=== PATIENT | female | born 1990 | race Caucasian/White ===

== ENCOUNTER 2022-03-26 14:37 | Emergency (ER) | payer OTHER ==
[~2022-03-26 14:37] MED LIST: CEFUROXIME500 MG PO; FLOMAX0.4 MG PO; NORVASC5 MG PO; TORADOL 10 MG T10 MG PO
[2022-03-26 15:30] LABS: RED BLOOD COUNT 4.86 M/UL (4.00-5.10); WHITE BLOOD COUNT 10.6 K/UL (4.5-11.0)
[2022-03-26 15:51] LABS: BUN/CREATININE RATIO 7 (0-10)
[2022-03-26] MEDS ORDERED: FLOMAX 0.4 MG0.4 MG PO (19:03)
[2022-03-26] MEDS ORDERED: OMNICEF 300 MG300 MG PO (19:03)
== END 2022-03-26 19:52 | disposition home or self-care (01) ==
LOC: ER1 14:37
PROVIDERS: Family Medicine
DX: N13.2 Hydronephrosis with renal and ureteral calculous obstruction (principal); N30.90 Cystitis, unspecified without hematuria; F17.200 Nicotine dependence, unspecified, uncomplicated; Z87.442 Personal history of urinary calculi
CPT/HCPCS: 80053; 81001; 83690; 85025; 96374; 96375; 99284; J0696; J1885